=== PATIENT | male | born 1990 | race Caucasian/White ===

== ENCOUNTER 2016-11-25 20:12 | Emergency (ER) | payer BC ==
[2016-11-25 20:23] VITALS: BP 123/77
[2016-11-25] MEDS ORDERED: Cephalexin CAP* 500 MG PO ONE (20:51)
--- NOTE | 2016-11-25 20:56 | UC ---
Skin Complaint HPI - HPI Summary HPI Summary: 26 male presents with complaints of a "boil" on his right neck, under jaw line that began approximately 3 days ago. Patient states he thought it was a zit however its has only became more painful, red and swollen over the past few days. Patient has not picked at it. He applied one warm compress to the area. Denies fever/chills or any other rash. Denies PMHx. States it feels similar to a dental abscess that he had in the past but in a different location. 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 Associated Signs & Symptoms: Positive: Negative - Allergy/Home Medications Allergies/Adverse Reactions: Allergies Allergy/AdvReac Type Severity Reaction Status Date / Time Sulfa Antibiotics Allergy Hives Verified 11/25/16 20:23 Review of Systems Constitutional: Negative Skin: Other - "boil" right neck/face, redness, swelling and pain ENT: Negative Respiratory: Negative Cardiovascular: Negative Musculoskeletal: Negative Neurological: Negative All Other Systems Reviewed And Are Negative: Yes PMH/Surg Hx/FS Hx/Imm Hx Respiratory History Of: Reports: Asthma - Exercise induced - Surgical History Surgical History: None - Family History Known Family History: Positive: None, Diabetes Negative: Cardiac Disease, Hypertension - Social History Alcohol Use: Rare Substance Use Type: None Smoking Status (MU): Never Smoked Tobacco - Immunization History Vaccination Up to Date: Yes Physical Exam Triage Information Reviewed: Yes Appearance: Well-Appearing, No Pain Distress, Well-Nourished Vital Signs: Initial Vital Signs Temp 98.5 F 11/25/16 20:21 Pulse 59 11/25/16 20:21 Resp 16 11/25/16 20:21 BP 123/77 11/25/16 20:21 Pulse Ox 99 11/25/16 20:21 Vital Signs Reviewed: Yes Eyes: Positive: Conjunctiva Clear ENT: Positive: Normal ENT inspection, Hearing grossly normal, Pharynx normal Dental: Negative: Percussion Tenderness @, Gross Decay/Caries @, Dental Fracture @, Abscess @, Cervical Lymphadenopathy Neck: Positive: Supple, Nontender Respiratory: Positive: Chest non-tender, Lungs clear, Normal breath sounds, No respiratory distress, No accessory muscle use Cardiovascular: Positive: RRR, No Murmur, Pulses Normal, Brisk Capillary Refill Musculoskeletal: Positive: Strength Intact, ROM Intact Neurological: Positive: Alert Skin: Positive: Other - carbuncle noted on right jaw line/under chin. erythema, edema and tender to palpation. No active discharge or bleeding. firm to touch, non-fluctuant. about the size of a dime with surrounding erythema. rest of skin normal, warm and dry without rash. Course/Dx - Course Course Of Treatment: patient's carbuncle was not ready for I&D. given antibiotics and told to use warm compresses daily. if it appears it needs to be drained to return. aware of worsening symptoms to watch out for. follow up. ibuprofen/tylenol for pain and inflammation. - Differential Diagnoses - Skin Complaint Differential Diagnoses: Abscess, Cellulitis, Contact Dermatitis, Viral Exanthem , Other - Diagnoses Provider Diagnoses: Carbuncle Discharge - Discharge Plan Condition: Stable Disposition: HOME Prescriptions: Cephalexin CAP* [Keflex CAP*] 500 mg PO BID #14 cap Patient Education Materials: Furunculosis and Carbunculosis (ED) Referrals: No Primary Care Phys,NOPCP [Medical Doctor] - [facility] [place] [facility]ERR[facility] [Outside] Additional Instructions: Apply warm compresses multiple times daily. Keep are clean. Take antibiotic as directed until entire dose is finished. Ibuprofen/tylenol for pain and inflammation. If symptoms persist, worsen or new symptoms develop please seek medical attention. Follow up with pcp.
== END 2016-11-25 21:01 | disposition home or self-care (01) ==
LOC: UCCORT 20:12
DX: L02.13 Carbuncle of neck (principal); J45.990 Exercise induced bronchospasm; Z88.2 Allergy status to sulfonamides
CPT/HCPCS: 99212; A9270-GY; G0463

== ENCOUNTER 2017-02-27 19:04 | Emergency (ER) | payer BC ==
[2017-02-27 19:39] VITALS: BP 113/63
--- NOTE | 2017-02-27 20:17 | UC ---
Bite Injury/Animal HPI - HPI Summary HPI Summary: 26 yo M had at least 4 tick bites on 02/24/17. States they were deer ticks. States they were attached approx 24hrs. States he had Lyme disease in 2014 with joint pains, never had the bullseye rash. Wants the doxycycline prophylaxis. - History of Current Complaint Chief Complaint: Bob Stated Complaint: TICK BITES Time Seen by Provider: 02/27/17 19:59 Hx Obtained From: Patient Severity Currently: None Severity Initially: Mild Pain Intensity: 0 Pain Scale Used: 0-10 Numeric Onset/Duration: Sudden Onset, Lasting Days, Still Present Type of Bite: Wild Animal - ticks Has Animal Been Immunized?: N/A Character: Puncture Aggravating Factor(s): Nothing Alleviating Factor(s): Nothing Associated Signs And Symptoms: Positive: Negative - Allergies/Home Medications Allergies/Adverse Reactions: Allergies Allergy/AdvReac Type Severity Reaction Status Date / Time Cefaclor [From Ceclor] Allergy Hives Verified 02/27/17 19:39 Sulfa Antibiotics Allergy Hives Verified 02/27/17 19:39 PMH/Surg Hx/FS Hx/Imm Hx Previously Healthy: No - Lyme disease - Surgical History Surgical History: None - Family History Known Family History: Positive: Diabetes Negative: Cardiac Disease, Hypertension - Social History Alcohol Use: None Substance Use Type: None Smoking Status (MU): Never Smoked Tobacco - Immunization History Vaccination Up to Date: Yes Review of Systems Constitutional: Negative Skin: Negative Eyes: Negative ENT: Negative Respiratory: Negative Cardiovascular: Negative Gastrointestinal: Negative Motor: Negative Neurovascular: Negative Musculoskeletal: Negative Neurological: Negative Psychological: Negative All Other Systems Reviewed And Are Negative: Yes Physical Exam Triage Information Reviewed: Yes Appearance: Well-Appearing, No Pain Distress, Well-Nourished Vital Signs: Initial Vital Signs Temp 97.8 F 02/27/17 19:34 Pulse 92 02/27/17 19:34 Resp 14 02/27/17 19:34 BP 113/63 02/27/17 19:34 Pulse Ox 100 02/27/17 19:34 Vital Signs Reviewed: Yes Eyes: Positive: Conjunctiva Clear ENT: Positive: Normal ENT inspection Neck: Positive: Supple, Nontender Respiratory: Positive: No respiratory distress Cardiovascular: Positive: Brisk Capillary Refill Musculoskeletal: Positive: Strength Intact, ROM Intact Neurological: Positive: Alert Psychological Exam: Normal Skin Exam: Normal Bite Injury Course/Dx - Differential Dx/Diagnosis Provider Diagnoses: tick exposure. Lyme prophylaxis Discharge - Discharge Plan Condition: Stable Disposition: HOME Prescriptions: DOXYcycline CAP(*) [DOXYcycline 100MG CAP(*)] 200 mg PO DAILY #2 cap Patient Education Materials: Lyme Disease (ED), Tick Bite (ED) Referrals: Manohar Sims MD [Primary Care Provider] - 3 Days
== END 2017-02-27 20:13 | disposition home or self-care (01) ==
LOC: UCCORT 19:04
DX: S90.861A Insect bite (nonvenomous), right foot, initial encounter (principal); S60.862A Insect bite (nonvenomous) of left wrist, initial encounter; W57.XXXA Bitten or stung by nonvenomous insect and other nonvenomous arthropods, initial encounter; Y93.9 Activity, unspecified; Y92.9 Unspecified place or not applicable; Z88.1 Allergy status to other antibiotic agents; Z88.2 Allergy status to sulfonamides
CPT/HCPCS: 99212; G0463

== ENCOUNTER 2017-03-22 19:31 | Emergency (ER) | payer BC ==
[2017-03-22 20:47] VITALS: BP 125/73
--- NOTE | 2017-03-22 21:28 | UC ---
Neck Pain HPI - HPI Summary HPI Summary: 26 y/o male presents to the urgent care c/o neck stiffness, joint pain and TATE for the past 1 week. Pt states he had a tick bite about a month ago where he receive prophylactic treatment w/ 2 tabs of doxycycline here at the urgent care. He also states he has Hx of Lyme disease in 2013 and 2015 for which he was treated. However he has not f/u with PCP for further management. He states neck pain RT>LF, with dull joint pain and TATE. He hasn't taken anything to alleviate symptoms and he thinks they are related to the lyme. Pt denies SOB , fever, chest pain, N/V/D, urinary symptoms or abdominal pain. - History of Current Complaint Chief Complaint: UCGeneralIllness Stated Complaint: HEADACHE/STIFF NECK,KNEE PAIN Time Seen by Provider: 03/22/17 21:20 Hx Obtained From: Patient Onset/Duration Of Injury/Symptoms: Weeks Timing: Intermittent Episodes - mild TATE on and off Onset/Duration: Gradual Onset, Lasting Weeks, Still Present Severity: Moderate Pain Intensity: 4 Pain Scale Used: 0-10 Numeric Location: Discrete At: - at the temporal area Character: Dull Aggravating Factors: Nothing Alleviating Factors: OTC Meds Associated Signs & Symptoms: Positive: Headache. Negative: Swelling, Redness, Fever, Nuchal Rigity, Weakness, Paresthesia - Risk Factors Meningitis Risk Factors: Negative - Allergies/Home Medications Allergies/Adverse Reactions: Allergies Allergy/AdvReac Type Severity Reaction Status Date / Time Cefaclor [From Ceclor] Allergy Hives Verified 03/22/17 20:41 Sulfa Antibiotics Allergy Hives Verified 03/22/17 20:41 PMH/Surg Hx/FS Hx/Imm Hx Previously Healthy: Yes Other Endocrine History: lyme disease - Surgical History Surgical History: None - Family History Known Family History: Positive: Diabetes Negative: Cardiac Disease, Hypertension - Social History Alcohol Use: Rare Substance Use Type: None Smoking Status (MU): Never Smoked Tobacco - Immunization History Vaccination Up to Date: Yes Review Of Systems Constitutional: Positive: Negative Skin: Positive: Negative Eyes: Positive: Negative ENT: Positive: Negative Respiratory: Positive: Negative Cardiovascular: Positive: Negative Gastrointestinal: Positive: Negative Genitourinary: Positive: Negative Musculoskeletal: Positive: Other: - neck pain with joint pains Neurological: Positive: Headache Psychological: Positive: Negative All Other Systems Reviewed And Are Negative: Yes Physical Exam Triage Information Reviewed: Yes Appearance: Well-Appearing, No Pain Distress, Well-Nourished Vital Signs: Initial Vital Signs Temp 97.2 F 03/22/17 20:42 Pulse 59 03/22/17 20:42 Resp 16 03/22/17 20:42 BP 125/73 03/22/17 20:42 Pulse Ox 100 03/22/17 20:42 Vital Signs Reviewed: Yes Eye Exam: Normal Eyes: Positive: Conjunctiva Clear - PERRLA, EOMI ENT Exam: Normal ENT: Positive: Normal ENT inspection, Hearing grossly normal, Pharynx normal, TMs normal Dental Exam: Normal Neck exam: Normal Neck: Positive: Supple, Tenderness @ - mild tenderness on left side of neck, FROM of neck, Enlarged Nodes @ - anterior cervical Respiratory Exam: Normal Respiratory: Positive: Chest non-tender, Lungs clear, Normal breath sounds, No respiratory distress Cardiovascular Exam: Normal Cardiovascular: Positive: RRR, No Murmur, Pulses Normal, Brisk Capillary Refill Abdominal Exam: Normal Abdomen Description: Positive: Nontender, No Organomegaly, Soft. Negative: CVA Tenderness (R), CVA Tenderness (L) Bowel Sounds: Positive: Present Musculoskeletal Exam: Normal Musculoskeletal: Positive: Strength Intact, ROM Intact, No Edema Neurological Exam: Normal Psychological Exam: Normal Skin Exam: Normal Neck Pain Course/Dx - Course Course Of Treatment: 26 y/o male presents to the urgent care c/o neck stiffness , joint pain and TATE for the past 1 week. Pt states he had a tick bite about a month ago where he receive prophylactic treatment w/ 2 tabs of doxycycline here at the urgent care. He also states he has Hx of Lyme disease in 2013 and 2015 for which he was treated. However he has not f/u with PCP for further management. He states neck pain RT>LF, with dull joint pain and TATE. He hasn't taken anything to alleviate symptoms and he thinks they are related to the lyme. Pt denies SOB, fever, chest pain, N/V/D, urinary symptoms or abdominal pain.Hx obtained. Lyme serology ordered. PT Rx doxycycline PO and Pt advised to take full course of ABX despite the result of the serology. F/u with DR Miles if lyme serology returns positive for further treatment. - Differential Dx/Diagnosis Differential Dx/HQI/PQRI: Sprain, Strain, Torticollis, Other - lyme disease, Provider Diagnoses: 1-Acute joint pain, with headache and exposure to tick bites r/o lyme disease Discharge - Discharge Plan Condition: Stable Disposition: HOME Prescriptions: DOXYcycline CAP(*) [DOXYcycline 100MG CAP(*)] 100 mg PO BID #42 cap Patient Education Materials: Lyme Disease (ED) Referrals: Thierno RODNEY,Froylan Gong [Medical Doctor] - Manohar Sims MD [Primary Care Provider] - 2 Weeks Additional Instructions: Please take full course of antibiotic to avoid resistance. Take ibuprofen q6- 8hrs PRn to alleviate headache. Lyme serology will be sent to lab. Please f/u with Dr Miles Infectious disease for further evaluation and treatment. If fever develops and neck pain increses despite taking the antibiotic please go immediately to the ER immediately.
[2017-03-22] MEDS ORDERED: Ibuprofen TAB* 400 MG PO ONE (21:30)
== END 2017-03-22 21:57 | disposition home or self-care (01) ==
LOC: UCCORT 19:31
DX: M25.50 Pain in unspecified joint (principal); R51 Headache; M43.6 Torticollis; Z88.1 Allergy status to other antibiotic agents; Z88.2 Allergy status to sulfonamides
CPT/HCPCS: 86618; 99212; A9270-GY; G0463

== ENCOUNTER 2017-12-31 21:17 | Emergency (ER) | payer BC ==
[2017-12-31 21:35] VITALS: BP 143/76
[2017-12-31] MEDS ORDERED: Ibuprofen TAB* 400 MG PO ONE (21:43)
--- NOTE | 2017-12-31 21:44 | ED ---
Upper Extremity Pain - HPI Summary HPI Summary: 27 yr old male with right shoulder pain. He was running in a game of [employer] and slid landing on his right shoulder. He has pain in the superior and anterior deltoid. No numbness or tingling in posterior shoulder or hand. No weakness or numbness in right hand. No other complaints. - History of Current Complaint Chief Complaint: UCUpperExtremity Stated Complaint: RT SHOULDER INJURY Time Seen by Provider: 12/31/17 21:30 - Allergies/Home Medications Allergies/Adverse Reactions: Allergies Allergy/AdvReac Type Severity Reaction Status Date / Time [facility] Allergy Intermediate Hives Verified 12/31/17 21:36 Sulfa (Sulfonamide Allergy Intermediate Hives Verified 12/31/17 21:36 Antibiotics) Home Medications: Home Medications NK [No Home Medications Reported] 12/31/17 [History Confirmed 12/31/17] PMH/Surg Hx/FS Hx/Imm Hx Respiratory History: Reports: Hx Asthma - Exercise induced Infectious Disease History: No Infectious Disease History: Reports: History Other Infectious Disease - lyme 2013 Denies: Traveled Outside the [place] in Last 30 Days - Family History Known Family History: Positive: Diabetes Negative: Cardiac Disease, Hypertension - Social History Occupation: Employed Full-time Alcohol Use: None Substance Use Type: Reports: None Smoking Status (MU): Never Smoked Tobacco Review of Systems Constitutional: Negative Positive: Other - right shoulder pain after a fall All Other Systems Reviewed And Are Negative: Yes Physical Exam Triage Information Reviewed: Yes Vital Signs On Initial Exam: Initial Vitals Temp Pulse Resp BP Pulse Ox 99.2 F 57 14 143/76 100 12/31/17 21:30 12/31/17 21:30 12/31/17 21:30 12/31/17 21:30 12/31/17 21:30 Vital Signs Reviewed: Yes Appearance: Positive: Well-Appearing, No Pain Distress Skin: Positive: Warm, Skin Color Reflects Adequate Perfusion Head/Face: Positive: Normal Head/Face Inspection Eyes: Positive: EOMI, CRYSTAL ENT: Positive: Normal ENT inspection Neck: Positive: Nontender Respiratory/Lung Sounds: Positive: Clear to Auscultation, Breath Sounds Present Cardiovascular: Positive: RRR, Pulses are Symmetrical in both Upper and Lower Extremities - normal radial pulse. Negative: Murmur Abdomen Description: Negative: Distended Musculoskeletal: Positive: Other - patient is tender over the AC joint right shoulder, Neuro vasc intact right hand, he has intact sensory axillary nerve right shoulder. He has pain on ROM with slightest ROM of the right shoulder with tenderness over the right shoulder over the anterior and posterior deltoid.. He is able to hold arm across abdomen and not clinically dislocated. No STS, no deformity. Neurological: Positive: Sensory/Motor Intact, Alert, Oriented to Person Place, Time, CN Intact II-III, Speech Normal Psychiatric: Positive: Normal - [place] Coma Scale Best Eye Response: 4 - Spontaneous Best Motor Response: 6 - Obeys Commands Best Verbal Response: 5 - Oriented Coma Scale Total: 15 Diagnostics - Vital Signs Vital Signs Temp Pulse Resp BP Pulse Ox 12/31/17 21:30 99.2 F 57 14 143/76 100 - Laboratory Lab Statement: Any lab studies that have been ordered have been reviewed, and results considered in the medical decision making process. - Radiology shoulder clavicle right Xray Interpretation: No Acute Changes Radiology Interpretation Completed By: ED Physician - final read pending by radiology in am. Course/Dx - Course Course Of Treatment: 27 yrold put in sling and he will be referred to ortho for followup . May have rotator cuff tear. Do not see any injuries on xray. Await read in am. - Diagnoses Provider Diagnoses: Hypertension, Contusion of right shoulder, Rotator cuff injury Discharge - Sign-Out/Discharge Documenting (check all that apply): Discharge/Admit/Transfer - Discharge Plan Condition: Good Disposition: HOME Patient Education Materials: Rotator Cuff Injury (ED), Hypertension (ED) Forms: *Work Release Referrals: Manohar Sims MD [Primary Care Provider] - 2 Days - Billing Disposition and Condition Condition: GOOD Disposition: HOME
--- NOTE | 2018-01-01 07:48 | RAD ---
INDICATION: Right clavicular injury COMPARISON: Right shoulder same date TECHNIQUE: AP views were obtained. FINDINGS: The bony structures, joint spaces, and soft tissues are normal for age. IMPRESSION: NORMAL STUDY.
--- NOTE | 2018-01-01 07:50 | RAD ---
INDICATION: Right shoulder injury COMPARISON: None TECHNIQUE: Routine frontal, Y and axial views were obtained. FINDINGS: The bony structures, joint spaces, and soft tissues are normal for age. IMPRESSION: NEGATIVE EXAMINATION.
== END 2017-12-31 22:29 | disposition home or self-care (01) ==
LOC: UCCORT 21:17
DX: I10 Essential (primary) hypertension (principal); S46.001A Unspecified injury of muscle(s) and tendon(s) of the rotator cuff of right shoulder, initial encounter; S40.011A Contusion of right shoulder, initial encounter; X58.XXXA Exposure to other specified factors, initial encounter; Y93.59 Activity, other involving other sports and athletics played individually; Y92.9 Unspecified place or not applicable; Z88.2 Allergy status to sulfonamides; Z88.1 Allergy status to other antibiotic agents
CPT/HCPCS: 99212; A9270-GY; G0463

== ENCOUNTER 2018-02-20 20:42 | Emergency (ER) | payer BC ==
[2018-02-20 20:52] VITALS: BP 118/72
--- NOTE | 2018-02-20 21:07 | UC ---
Headache HPI - HPI Summary HPI Summary: This patient is a 27 year old M presenting to [facility] with a chief complaint of headache since earlier today. The patient rates the pain 8/10 in severity. Symptoms aggravated by nothing. Symptoms alleviated by nothing. Patient reports chills, neck pain, 4/10 knee pain, 5/10 sore throat, weakness, and fatigue. Patient denies photophobia. Patient has hx of lyme disease. - History Of Current Complaint Chief Complaint: UCGeneralIllness Stated Complaint: HEADACH,THROAT PAIN Hx Obtained From: Patient Onset/Duration: Gradual Onset, Lasting Hours, Still Present Onset Of Symptoms: Gradual Initially Headache Was: Initial Pain Scale(0-10)= - 8 Currently Pain Is: Current Pain Scale(0-10)= - 5 Pain Intensity: 5 Pain Scale Used: 0-10 Numeric Timing: Constant Aggravating Factor(s): Nothing Allevating Factor(s): Nothing Associated Signs And Symptoms: Positive: Neck Pain - Allergies/Home Medications Allergies/Adverse Reactions: Allergies Allergy/AdvReac Type Severity Reaction Status Date / Time cefaclor [From Ceclor] Allergy Intermediate Hives Verified 02/20/18 20:53 Sulfa (Sulfonamide Allergy Intermediate Hives Verified 02/20/18 20:53 Antibiotics) PMH/Surg Hx/FS Hx/Imm Hx Previously Healthy: Yes - Surgical History Surgical History: None - Family History Known Family History: Positive: Diabetes Negative: Cardiac Disease, Hypertension - Social History Alcohol Use: Occasionally Substance Use Type: None Smoking Status (MU): Never Smoked Tobacco - Immunization History Vaccination Up to Date: Yes Review of Systems Constitutional: Chills Eyes: Negative - negative photophobia ENT: Sore Throat Musculoskeletal: Arthralgia - knee pain, Myalgia - stiff neck Neurological: Headache All Other Systems Reviewed And Are Negative: Yes Physical Exam - Summary Physical Exam Summary: VITAL SIGNS: Reviewed. GENERAL: Patient is a well-developed and nourished MALE who is lying comfortable in the stretcher. Patient is not in any acute respiratory distress. HEAD AND FACE: Normocephalic EYES: PERRLA, EOMI x 2. EARS: Hearing grossly intact. MOUTH: some pharyngeal erythema NECK: Supple, trachea is midline, no adenopathy, no JVD, no carotid bruit. CHEST: Symmetric, no tenderness at palpation LUNGS: Clear to auscultation bilaterally. No wheezing or crackles. CVS: Regular rate and rhythm, S1 and S2 present, no murmurs or gallops appreciated. ABDOMEN: Soft, non-tender. Bowel sounds are normal. No abdominal abnormal pulsations. EXTREMITIES: Full ROM in all major joints, no edema, no cyanosis or clubbing. NEURO: Alert and oriented x 3. No acute neurological deficits. Speech is normal and follows commands. No meningeal signs SKIN: Dry and warm Triage Information Reviewed: Yes Vital Signs: Initial Vital Signs Temp 98.3 F 02/20/18 20:47 Pulse 70 02/20/18 20:47 Resp 16 02/20/18 20:47 BP 118/72 02/20/18 20:47 Pulse Ox 100 02/20/18 20:47 Vital Signs Reviewed: Yes Headache Course/Dx - Course Course Of Treatment: A rapid strep is negative. Physical exam the patient doesn 't have any meningeal signs. The patient is a have any target lesions however the patient requested to her Lyme titer and she will follow-up with a primary care physician. I believe that the patient has a viral infection. The patient was given Toradol for the pain. The patient is afebrile and he does not have any meningeal signs to think that the patient has meningitis. He was instructed to return to the urgent care or go to the emergency room if she develops more pain, headache, stiff neck and photophobia as well as fever. She understands and agrees. He is hemodynamically stable alert and oriented 3. - Differential Dx/Diagnosis Provider Diagnoses: Acute pharyngitis likely viral. Discharge - Sign-Out/Discharge Documenting (check all that apply): Patient Departure - Discharge Plan Condition: Stable Disposition: HOME Patient Education Materials: Pharyngitis (ED) Referrals: Manohar Sims MD [Primary Care Provider] - Additional Instructions: Take medications Tylenol or Ibuprofen for pain or fever Increase your fluid intake Return to the if symptoms worsen - Billing Disposition and Condition Condition: STABLE Disposition: Home
[2018-02-20] MEDS ORDERED: Ketorolac INJ* 60 MG/2 ML VIAL IM ONE (21:30)
== END 2018-02-20 21:49 | disposition home or self-care (01) ==
LOC: UCEAST 20:42
DX: J02.9 Acute pharyngitis, unspecified (principal); M54.2 Cervicalgia; R53.1 Weakness; R53.83 Other fatigue; R68.83 Chills (without fever); M25.569 Pain in unspecified knee; Z86.19 Personal history of other infectious and parasitic diseases; Z88.1 Allergy status to other antibiotic agents; Z88.2 Allergy status to sulfonamides; Z83.3 Family history of diabetes mellitus
CPT/HCPCS: 86618; 87651; 96372; 99211; G0463; J1885